=== PATIENT | male | born 1975 | race Hispanic/Latino ===

== ENCOUNTER 2018-10-20 11:12 | Emergency (ER) | payer OTHER ==
[2018-10-20 11:18] VITALS: O2SAT 99
--- NOTE | 2018-10-20 11:41 | C.PDOC ---
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 He states he was using a circular saw at work and completed amputated part of his thumb. He is c/o pain at site, and denies sensory changes. Patient is UTD with tetanus vaccination (2018), and denies any significant PMHx. 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) Past Medical History Reviewed: Historical Data, Nursing Documentation, Vital Signs Vital Signs: Last Vital Signs Temp 98 F 10/20/18 11:17 Pulse 71 10/20/18 11:17 Resp 20 10/20/18 11:17 BP 163/80 H 10/20/18 11:17 Pulse Ox 99 10/20/18 11:17 - Medical History PMH: No Chronic Diseases Family History: States: No Known Family Hx - Social History Hx Alcohol Use: No Hx Substance Use: No - Immunization History Hx Tetanus Toxoid Vaccination: No Hx Influenza Vaccination: No Hx Pneumococcal Vaccination: No Review Of Systems Constitutional: Negative for: Fever, Chills Gastrointestinal: Negative for: Nausea, Vomiting Musculoskeletal: Positive for: Other (left thumb amputation) Skin: Negative for: Rash Neurological: Negative for: Weakness, Numbness, Headache, Dizziness Physical Exam - Physical Exam Appears: Well, Non-toxic, In Acute Distress (in mild pain) Skin: Warm, Dry, Other (see extremity exam) Head: Normacephalic Eye(s): bilateral: Normal Inspection Oral Mucosa: Moist Cardiovascular: Rhythm Regular Respiratory: Normal Breath Sounds, No Rales, No Rhonchi, No Wheezing Extremity: Normal ROM (at MTP joints B/L hands), Other (left thumb complete amputation at IP joint, sensation intact, (+) mild bleeding of stump) Pulses: Left Radial: Normal, Right Radial: Normal Neurological/Psych: Oriented x3, Normal Sensation ED Course And Treatment - Laboratory Results Result Diagrams: 10/20/18 11:55 10/20/18 11:55 O2 Sat by Pulse Oximetry: 99 (RA) Pulse Ox Interpretation: Normal - Other Rad left hand xray X-Ray: Interpreted by Me, Viewed By Me (amputation left distal phalanx (first digit)) Progress Note: Blood work, Xray ordered and reviewed. Patient given IV Morphine , IV Zosyn. 11:45am- Spoke with hand surgeon Dr. Oates, pictures sent. He states he will be unable to reattach the digit at [facility], recommneds reaching out to [facility] Microsurgery fellow. 12:05pm - Spoke with plastics G[employer] REPAIRER Sylvia, she will reach out to [facility] plastic, which is their reimplantation center, and call me back. 12:15pm- Called back by Sylvia, they recommend [facility] as out closest reimplantation center. 12:35pm- After being on hold for approx 15-20min, spoke with plastic surgery department. They will have their platic surgery physican call us back. 1:05PM- Unable to get in contact with anyone at [facility] hand/plastics. Called [facility] transfer Center, will sent to their hospital for reimplantation. 1:35pm- Able to speak to plastic surgery at [facility], they accept patient for transfer (Dr. Andrea Todd). Will send to them as they are the closer hospital. 1:45pm- Spoke with ER attending Dr. Celaya, also accepts patient for transfer to their ER. Disposition - Disposition Disposition: Trans to Other Acute Care Hosp Disposition Time: 13:45 Condition: STABLE Forms: [facility] (Faroese) - Clinical Impression Clinical Impression: Amputation thumb Critical Care Time - Critical Care Note Total Time (in mins): 50 Documented critical care: time excludes all time spent performing seperately billable procedures.
[2018-10-20] MEDS ORDERED: Piperacillin/Tazobact 3.375 gm 100 ML IV STA (11:48)
[2018-10-20 12:01] LABS: BASO % 0.7 % (0.0-2.0); EOS % 0.8 % (0.0-4.0); HEMOGLOBIN 15.9 g/dL (12.0-18.0); LYMPH # 1.4 K/uL (1.0-4.3); LYMPH % 24.2 % (20.0-40.0); MEAN CELL VOLUME 87.4 fL (80.0-94.0); MEAN CORPUSCULAR HEMOGLOBIN 29.9 pg (27.0-31.0); MEAN CORPUSCULAR HGB CONC 34.2 g/dL (33.0-37.0); MEAN PLATELET VOLUME 8.2 fL (7.2-11.7); MONO # 0.5 K/uL (0.0-0.8); MONO % 8.4 % (0.0-10.0); NEUT # 3.8 K/uL (1.8-7.0); NEUT % 65.9 % (50.0-75.0); NRBC % 0.1 % (0.0-2.0); RBC 5.31 Mil/uL (4.40-5.90); RED CELL DISTRIBUTION WIDTH 12.5 % (11.5-14.5); WHITE BLOOD COUNT 5.7 K/uL (4.8-10.8)
[2018-10-20] MEDS ORDERED: Morphine 4 MG/ML VIAL ONE (12:05)
[2018-10-20 12:08] LABS: PROTHROMBIN TIME 10.9 SECONDS (9.7-12.2)
[2018-10-20 12:11] VITALS: RESP 18
[2018-10-20 12:14] LABS: ALB/GLOB RATIO 1.6 (1.0-2.1); ALBUMIN 5.1 g/dL (3.5-5.0); ALT/SGPT 51 U/L (21-72); AST/SGOT 37 U/L (17-59); BLOOD UREA NITROGEN 16 mg/dL (9-20); CALCIUM 9.9 mg/dl (8.6-10.4); GFR NON-AFRICAN AMERICAN > 60
[2018-10-20] MEDS ORDERED: Piperacillin/Tazobact 3.375 gm 100 ML IVPB ONE (12:20)
--- NOTE | 2018-10-20 12:31 | RAD ---
Date of service: 10/20/2018 PROCEDURE: Left Thumb radiographs. HISTORY: left thumb amputation COMPARISON: None. TECHNIQUE: AP radiograph of the left hand, as well as spot oblique and lateral images of thumb were obtained. FINDINGS: LEFT THUMB: Laceration amputation of the thumb's distal phalanx is noted this is the mid proximal metaphyseal level of the distal phalanx. JOINTS: Normal. SOFT TISSUES: Normal. OTHER FINDINGS: None. IMPRESSION: Laceration amputation bony and soft tissue-thumb affected as above
[2018-10-20 13:22] VITALS: BP 120/58; PULSE 67; TEMP 98.2
== END 2018-10-20 14:13 | disposition short-term general hospital (02) ==
LOC: C.ER 11:12
DX: S68.012A Complete traumatic metacarpophalangeal amputation of left thumb, initial encounter (principal); W31.2XXA Contact with powered woodworking and forming machines, initial encounter; Y92.89 Other specified places as the place of occurrence of the external cause; Y99.0 Civilian activity done for income or pay
CPT/HCPCS: 73140; 80053; 85025; 85610; 85730; 86850; 86900; 96374; 99291; J2270; J2543